=== PATIENT | female | born 1950 | race American Indian/Alaskan Native ===

== ENCOUNTER 2017-12-14 08:19 | Day surgery (SDC) | payer MEDICARE, OTHER ==
--- NOTE | 2017-12-14 09:16 | Anesthesia Consultation ---
Anesthesia Consult and Med Hx Date of service: 12/14/17 - Airway Anesthetic Teeth Evaluation: Good ROM Head & Neck: Adequate Mental/Hyoid Distance: Adequate Mallampati Class: Class I Intubation Access Assessment: Good - Pulmonary Exam CTA: Yes - Cardiac Exam Cardiac Exam: RRR - Pre-Operative Health Status ASA Pre-Surgery Classification: ASA2 Proposed Anesthetic Plan: General - Cardiovascular System Hx Hypertension: Yes - Additional Comments Anesthesia Medical History Comments: "Borderline" diabetes. NAC, negative family hx. Heart sounds normal during assessment.
--- NOTE | 2017-12-14 09:16 | Anesthesia Day of Surgery ---
Anesthesia Day of Surgery - Day of Surgery Patient Examined: Yes Patient H&P Reviewed: Yes Patient is NPO: Yes Beta Blockers: Yes
[2017-12-14] MEDS ORDERED: VERSED ONE (09:33)
[2017-12-14] MEDS ORDERED: DIPRIVAN 10 MG/ML IV ONE (09:33)
[2017-12-14] MEDS ORDERED: HURRICAINE ONE 20% TOPICAL SPRAY MM (09:35)
[2017-12-14] MEDS ORDERED: NACL 0.9% 500 ML 500 ML ONE (09:36)
[2017-12-14] MEDS ORDERED: HURRICAINE ONE 20% TOPICAL SPRAY MM NR (10:00)
--- NOTE | 2017-12-14 10:41 | Short Stay Summary ---
Short Stay Documentation Date of service: 12/14/17 - History H&P: obtained from office - Allergies and Medications Current Medications: Allergies No Known Allergies Allergy (Verified 12/14/17 09:52) Home Medications Medication Instructions Recorded Confirmed Last Taken Type Carvedilol [Coreg] 6.25 mg PO BID 12/14/17 12/14/17 12/13/17 History Active Medications Benzocaine (Hurricaine One 20% Topical [place]) 3 spray MM PREOP NR Stop: 12/14/17 23:00 Last Admin: 12/14/17 09:48 Dose: 3 spray - Physical exam General appearance: no acute distress Integumentary: no rash HEENT: Atraumatic Lungs: Clear to auscultation Breasts: deferred Heart: Regular rate Gastrointestinal: normal Female Genitourinary: deferred Rectal Exam: deferred Extremities: no ischemia Neurological: Normal gait - Brief post op/procedure progress note Date of procedure: 12/14/17 Pre-op diagnosis: Moderate to severe MR Post-op diagnosis: same Procedure: YANIQUE Anesthesia: MAC Findings: See report Surgeon: EDER SHELDON Estimated blood loss: none Pathology: none Condition: stable - Hospital course Hospital course: Uneventful - Disposition Condition at discharge: Good Disposition: DC-01 TO HOME OR SELFCARE Short Stay Discharge Plan Activity: advance as tolerated Weight Bearing Status: Weight Bear as Tolerated Diet: low fat, low cholesterol, low salt Follow up with: EDER SHELDON MD [Staff Physician] - 7 Days PRIMARY CARE, [Primary Care Provider] - 7 Days Forms: Post Sedation D/C Instructions, YANIQUE Discharge Form
[2017-12-14 11:43] VITALS: BP 136/65
== END 2017-12-14 12:00 | disposition home or self-care (01) ==
LOC: CATHLABREC 08:19 → ECHO 08:19 → EDSTATUS 08:30 → CATHLABREC 12:00
PROVIDERS: ATTEND Internal Medicine
DX: I34.0 Nonrheumatic mitral (valve) insufficiency (principal); I36.1 Nonrheumatic tricuspid (valve) insufficiency; I35.8 Other nonrheumatic aortic valve disorders; I37.1 Nonrheumatic pulmonary valve insufficiency; I31.3 Pericardial effusion (noninflammatory); E78.5 Hyperlipidemia, unspecified; I10 Essential (primary) hypertension; Z79.899 Other long term (current) drug therapy
CPT/HCPCS: 82962; 93312; J2250; J2704; J7040; 93320; 93325